=== PATIENT | male | born 1935 | race Caucasian/White ===

== ENCOUNTER 2019-09-22 06:32 | Day surgery (SDC) | payer OTHER ==
[2019-09-14 12:05] LABS: BASOPHILS # (AUTO) 0.1 X10'3 (0-0.2); BASOPHILS % (AUTO) 0.8 % (0-1); EOSINOPHILS # (AUTO) 0.3 X10'3 (0-0.9); EOSINOPHILS % (AUTO) 3.9 % (0-6); LYMPHOCYTES # (AUTO) 1.3 X10'3 (1.1-4.8); LYMPHOCYTES % (AUTO) 15.1 % (21-51); MEAN CORPUSCULAR HGB CONC 33.1 g/dL (33.0-36.5); MEAN CORPUSCULAR VOLUME 90.5 FL (78-98); MONOCYTES # (AUTO) 0.7 X10'3 (0-0.9); MONOCYTES % (AUTO) 8.1 % (2-12); NEUTROPHILS # (AUTO) 6.1 X10'3 (1.8-7.7); NEUTROPHILS % (AUTO) 72.1 % (42-75); PRE OP HEMATOCRIT 38.7 % (42.0-52.0); PRE OP HEMOGLOBIN 12.8 g/dL (14.0-17.9); PRE OP PLATELET COUNT 223 X10'3 (140-440); RED BLOOD COUNT 4.27 X10'6 (4.70-6.10); RED CELL DISTRIBUTION WIDTH 13.9 % (11.5-14.5)
[2019-09-14 12:25] LABS: ALBUMIN 3.6 G/DL (3.4-5.0); ALBUMIN/GLOBULIN RATIO 1.1 (1.1-1.5); ALKALINE PHOSPHATASE 73 IU/L (46-116); BLOOD UREA NITROGEN 21 MG/DL (7-18); BUN/CREATININE RATIO 29.6 (5.4-32.0); CALCIUM 8.7 MG/DL (8.5-10.1); CHLORIDE 101 MMOL/L (99-107); CREATININE 0.71 MG/DL (0.60-1.10); PRE OP ALT 29 U/L (30-65); PRE OP ANION GAP 9 (8-16); PRE OP AST 21 U/L (10-37); PRE OP BILIRUB, TOTAL 0.3 MG/DL (0.0-1.0); PRE OP GLUCOSE 132 MG/DL (70-104); PRE OP POTASSIUM 4.2 MMOL/L (3.4-5.1); PRE OP SODIUM 134 MMOL/L (135-145); TOTAL CARBON DIOXIDE 24.2 MMOL/L (24-32); eGFR > 90 ML/MIN
[~2019-09-22] VITALS: Ht 180.3 cm; Wt 95.3 kg
[~2019-09-22 06:32] MED LIST: AMLO2.5T2 PO; BUDE10.2 INH; FLO0.4C PO; ISOS10TA8 PO; METF-438 PO; OMEP-50 PO; RAMI5CAP65 PO; ROSU40TA PO; albuterol 2.5 MG/3 ML nebule NEB ONE; ceFAZolin 2gm in dextrose, iso 50 ML IV ONE; famotidine 20mg tablet PO ONE; ringers solution, lacted 1,000 ML IV SCH
[2019-09-22 06:40] VITALS: BP 176/70
[2019-09-22] MEDS ORDERED: BUPIVAcaine/PF 2.5mg/ml (0.25%) 10ml vial ONE (06:46)
[2019-09-22] MEDS ORDERED: LIDOcaine 0.5% (5mg/ml) 50ml vial ONE (06:49)
[2019-09-22] MEDS ORDERED: ringers solution, lacted 1,000 ML IV SCH (06:56)
[2019-09-22] MEDS ORDERED: meperidine/PF 25mg/ml syringe IV PRN ×3 (07:00)
[2019-09-22] MEDS ORDERED: proCHLORperazine 10 MG/2 ml inj IV PRN (07:00)
[2019-09-22] MEDS ORDERED: morphine 2 MG/ML inj. syringe IV PRN (07:00)
[2019-09-22] MEDS ORDERED: ondansetron/PF 4mg/2ml inj IV PRN (07:00)
[2019-09-22] MEDS ORDERED: morphine 4 MG/ML inj SYRINge IV PRN (07:00)
[2019-09-22] MEDS ORDERED: ASPI81TA52 PO (07:26)
[2019-09-22] MEDS ORDERED: CLOP75TA33 PO (07:26)
[2019-09-22] MEDS ORDERED: fentaNYL/PF 50MCG/1 ML 2ML syringe ONE (08:38)
[2019-09-22] MEDS ORDERED: midazolam 2 mg/2 ml injection ONE (08:38)
[2019-09-22 09:02] VITALS: BP 157/66
--- NOTE | 2019-09-22 09:02 | NUR ---
Received from OR via , accompanied by Anesthesiologist JESS and report given by Anesthesiolgist. AAWAKE VS WNL NO CO PAIN DSG DI, FINGERS WARM PINK WITH MOVEMENT. IE TO WRIST
[2019-09-22 09:12] VITALS: BP 161/67
[2019-09-22 09:22] VITALS: BP 165/66
[2019-09-22 09:32] VITALS: BP 159/62
[2019-09-22 09:42] VITALS: BP 157/58
--- NOTE | 2019-09-22 09:52 | NUR ---
AWAKE VS WNL, NO CO PAIN DR CAMARA IN TO SEE PT. DSG DI, FINGERS WARM PINK GOOD CAP REFILL. DISCH INSTR GIVEN TO PT AND UNDERSTOOD. USING ICE PACK. HOME WITH
== END 2019-09-22 09:52 | disposition home or self-care (01) ==
LOC: PAS 06:32
PROVIDERS: ATTEND Orthopaedic Surgery Hand Surgery
DX: G56.01 Carpal tunnel syndrome, right upper limb (principal); M19.90 Unspecified osteoarthritis, unspecified site; K21.9 Gastro-esophageal reflux disease without esophagitis; N40.0 Benign prostatic hyperplasia without lower urinary tract symptoms; I10 Essential (primary) hypertension; J43.9 Emphysema, unspecified; E11.9 Type 2 diabetes mellitus without complications; Z11.59 Encounter for screening for other viral diseases; Z79.899 Other long term (current) drug therapy; Z79.82 Long term (current) use of aspirin; Z79.01 Long term (current) use of anticoagulants; Z87.891 Personal history of nicotine dependence; Z79.84 Long term (current) use of oral hypoglycemic drugs
CPT/HCPCS: 36415; 64721; 80053; 82948; 85025; 93005; 94640; 94760; A6222; J2001; J2250; J3010; J3490; U0003; A4215; J7120

== ENCOUNTER 2019-10-13 09:27 | Day surgery (SDC) | payer OTHER ==
[2019-10-06 14:34] LABS: BASOPHILS % (AUTO) 0.6 % (0-1); EOSINOPHILS # (AUTO) 0.2 X10'3 (0-0.9); EOSINOPHILS % (AUTO) 3.2 % (0-6); LYMPHOCYTES # (AUTO) 1.2 X10'3 (1.1-4.8); LYMPHOCYTES % (AUTO) 16.1 % (21-51); MEAN CORPUSCULAR HEMOGLOBIN 29.7 PG (27.0-31.0); MEAN CORPUSCULAR HGB CONC 32.7 g/dL (33.0-36.5); MEAN PLATELET VOLUME 7.5 FL (7.4-10.4); MONOCYTES # (AUTO) 0.6 X10'3 (0-0.9); MONOCYTES % (AUTO) 7.4 % (2-12); NEUTROPHILS # (AUTO) 5.4 X10'3 (1.8-7.7); NEUTROPHILS % (AUTO) 72.7 % (42-75); PRE OP HEMATOCRIT 38.3 % (42.0-52.0); PRE OP HEMOGLOBIN 12.5 g/dL (14.0-17.9); PRE OP PLATELET COUNT 212 X10'3 (140-440); RED BLOOD COUNT 4.21 X10'6 (4.70-6.10); RED CELL DISTRIBUTION WIDTH 14.1 % (11.5-14.5)
[2019-10-06 14:41] LABS: PRE OP PROTIME 9.9 SECONDS (9.0-12.0)
[2019-10-06 14:43] LABS: ALBUMIN 3.6 G/DL (3.4-5.0); ALBUMIN/GLOBULIN RATIO 1.1 (1.1-1.5); ALKALINE PHOSPHATASE 76 IU/L (46-116); BLOOD UREA NITROGEN 22 MG/DL (7-18); BUN/CREATININE RATIO 30.6 (5.4-32.0); CALCIUM 8.4 MG/DL (8.5-10.1); CHLORIDE 101 MMOL/L (99-107); CREATININE 0.72 MG/DL (0.60-1.10); PRE OP ALT 26 U/L (30-65); PRE OP ANION GAP 12 (8-16); PRE OP AST 19 U/L (10-37); PRE OP BILIRUB, TOTAL 0.3 MG/DL (0.0-1.0); PRE OP GLUCOSE 107 MG/DL (70-104); PRE OP SODIUM 136 MMOL/L (135-145); TOTAL CARBON DIOXIDE 23.2 MMOL/L (24-32); eGFR > 90 ML/MIN
[2019-10-13] VITALS (8 sets, daily range): BP systolic 142–156; BP diastolic 73–78
[~2019-10-13] VITALS: Ht 180.3 cm; Wt 95.3 kg
[~2019-10-13 09:27] MED LIST changes: +ASPI81TA52 PO; +BUPIVAcaine/PF 2.5mg/ml (0.25%) 10ml vial ONE; +CLOP75TA33 PO; -albuterol 2.5 MG/3 ML nebule NEB ONE; -ceFAZolin 2gm in dextrose, iso 50 ML IV ONE; +cefazolin/dext.iso 2gm/50ml 50 ML IV ONE
[2019-10-13] MEDS ORDERED: midazolam 2 mg/2 ml injection ONE (10:34)
[2019-10-13] MEDS ORDERED: fentaNYL/PF 50MCG/1 ML 2ML syringe ONE ×2 (10:34→11:13)
[2019-10-13] MEDS ORDERED: LIDOcaine 0.5% (5mg/ml) 50ml vial ONE (10:50)
[2019-10-13] MEDS ORDERED: hydrALAZINE 20mg/ml inj. IV ONE (11:07)
[2019-10-13] MEDS ORDERED: glycopyrrolate 0.2mg/ml inj ONE (11:12)
--- NOTE | 2019-10-13 11:20 | NUR ---
ADMITTED TO PACU FROM OR ACCOMPANIED BY ANESTHESIA. INTIAL PHYSICAL ASSESSMENT DONE AND RECORDED. REPORT RECEIVED FROM ANESTHESIA.
--- NOTE | 2019-10-13 12:30 | NUR ---
DISCHARGE CRITERIA MET, DISCHARGE INSTRUCTIONS GIVEN, DEMONSTRATES VERBAL UNDERSTANDING. DISCHARGED HOME IN GOOD CONDITION.
== END 2019-10-13 12:30 | disposition home or self-care (01) ==
LOC: PAS 09:27
PROVIDERS: ATTEND Orthopaedic Surgery Hand Surgery
DX: G56.02 Carpal tunnel syndrome, left upper limb (principal); J43.9 Emphysema, unspecified; I10 Essential (primary) hypertension; K21.9 Gastro-esophageal reflux disease without esophagitis; M19.90 Unspecified osteoarthritis, unspecified site; Z87.891 Personal history of nicotine dependence; Z79.899 Other long term (current) drug therapy; Z95.5 Presence of coronary angioplasty implant and graft
CPT/HCPCS: 36415; 64721; 80053; 82948; 85025; 85610; 85730; 87635; A6222; J0360; J2001; J2250; J3010; J3490; A4215; J7120